=== PATIENT | female | born 1990 | race Hispanic/Latino ===

== ENCOUNTER 2020-09-06 09:11 | Outpatient (CLI) | payer OTHER | END 2020-09-06 09:12 | disposition home or self-care (01) | LOC: CSHULT 09:11 | PROVIDERS: ATTEND Nurse Practitioner Adult Health | DX: E04.9 Nontoxic goiter, unspecified (principal); E07.9 Disorder of thyroid, unspecified | CPT/HCPCS: 76536 ==

== ENCOUNTER 2021-03-22 18:33 | Emergency (ER) | payer OTHER, SELFPAY ==
[2021-03-22 18:56] LABS: Bilirubin Neg (Negative); Blood, Urine Negative (Negative); Clarity Clear (Clear); Glucose, Urine (Dipstick) Normal (Negative); Ketone, Urine 5 mg/dL (Negative); Leukocyte Negative (Negative); Nitrite Negative (Negative); Protein, Urine (Dipstick) 30 mg/dl (Neg-Trace); Specific Gravity, Urine 1.025 (1.002-1.036); Urobilinogen Normal mg/dL (Less than 2)
[2021-03-22 18:59] LABS: Pregnancy Test - Urine (BHCG) Negative (Negative); Pregu Control Background? CLEAR/WHITE (CLR/WHITE); Pregu Control Bar Appear? YES (CONTROL BAR); Specific Gravity 1.025 (1.002-1.036)
[2021-03-22 19:05] LABS: Bacteria/HPF 2+ HPF (None Seen); Mucous/LPF 3+ LPF (<2+); RBC/HPF 0-3 HPF (0-3)
== END 2021-03-22 19:30 | disposition home or self-care (01) ==
LOC: CSHERS 18:33
DX: N39.0 Urinary tract infection, site not specified (principal)
CPT/HCPCS: 81003; 81015; 81025; 99284

== ENCOUNTER 2021-05-22 13:49 | Emergency (ER) | payer BC, OTHER ==
[2021-05-22] MEDS ORDERED: Ibuprofen 200 MG TAB ONE (15:01)
[2021-05-22] MEDS ORDERED: Acetaminophen 500 MG TAB ONE (15:02)
[2021-05-23 15:28] LABS: SARS-CoV-2 PCR by NAA DETECTED (NotDetected)
== END 2021-05-22 15:44 | disposition home or self-care (01) ==
LOC: CSHERS 13:49
DX: R07.89 Other chest pain (principal); E03.9 Hypothyroidism, unspecified
CPT/HCPCS: 71045; 93005; 93010; U0003; U0005

== ENCOUNTER 2022-07-24 18:14 | Emergency (ER) | payer OTHER, SELFPAY ==
[2022-07-24] MEDS ORDERED: Acetaminophen 500 MG TAB ONE (19:18)
== END 2022-07-24 21:15 | disposition home or self-care (01) ==
LOC: CSHERS 18:14
DX: S20.221A Contusion of right back wall of thorax, initial encounter (principal); F17.290 Nicotine dependence, other tobacco product, uncomplicated; E06.3 Autoimmune thyroiditis; W01.0XXA Fall on same level from slipping, tripping and stumbling without subsequent striking against object, initial encounter
CPT/HCPCS: 72072